=== PATIENT | female | born 2000 | race Caucasian/White ===

== ENCOUNTER → 2019-01-14 15:57 | Outpatient (CLI) | payer OTHER, SELFPAY ==
[2019-01-14 16:32] LABS: Basophils % 0.3 % (0.1-2.0); Eosinophils # 0.1 K/mm3 (0.0-0.4); Eosinophils % 0.6 % (0.1-12.0); Hematocrit 40.3 % (37.0-47.0); Hemoglobin 13.4 g/dL (12.2-16.2); Lymphocytes # 1.9 K/mm3 (0.7-4.5); Lymphocytes % 15.2 % (10-50); Mean Corpuscular HGB Conc 33.2 g/dL (31.8-35.4); Mean Corpuscular Hemoglobin 30.7 pg (27.0-31.2); Mean Corpuscular Volume 92.3 fl (81-99); Mean Platelet Volume 8.2 fl (7.4-10.4); Monocytes # 0.6 K/mm3 (0.1-1.0); Monocytes % 4.9 % (1.7-9.3); Platelet Count 252 K/mm3 (142-424); Red Blood Count 4.36 M/mm3 (4.20-5.40); Red Cell Distribution Width 13.1 % (11.5-17.5); White Blood Count 12.7 K/mm3 (4.5-13.0)
[2019-01-14 16:49] LABS: Amphetamine/Metha Screen,Urine Negative ng/mL (<1000); Barbiturates Screen,Urine Negative ng/mL (<200); Benzodiazepines Screen,Urine Negative ng/mL (<200); Cannabinoid Screen,Urine Negative ng/mL (<50); Cocaine Screen,Urine Negative ng/mL (<300); Methadone Screen,Urine Negative ng/mL (<300); Opiate Screen,Urine Negative ng/mL (<300); Phencyclidine Screen,Urine Negative ng/mL (<25)
[2019-01-14 17:17] LABS: Thyroid Stimulating Hormone 1.38 uIU/ml (0.516-4.13)
[2019-01-16 08:46] LABS: Rubella Antibodies, IgG 0.95 index (Immune >0.99)
[2019-01-16 12:21] LABS: HIV Screen 4th Generation wRfx Non Reactive (Non Reactive); Hepatitis B Surface Antigen Negative (Negative); Rapid Plasma Reagin Ab Titer Non Reactive (NonRea<1:1)
== END ==
PROVIDERS: Visit Provider Obstetrics & Gynecology
DX: Z34.90 Encounter for supervision of normal pregnancy, unspecified, unspecified trimester (principal)
CPT/HCPCS: 36415; 80305; 84443; 85025; 86592; 86703; 86762; 86850; 87340; G0432

== ENCOUNTER → 2019-03-19 10:03 | Outpatient (CLI) | payer OTHER, SELFPAY ==
[2019-03-21 02:14] LABS: AFP Value 52.4 ng/mL (.); DIA Value 263.11 pg/mL (.); DSR (Second Trimester) 1 IN 7183 (.); Gest. Age on Collection Date 16.9 WEEKS (.); Maternal Age At EDD 21.2 yr (.); OSBR Risk 1 IN 2100 (.); Results Report (.); hCG MoM 0.86 (.); uE3 MoM 1.41 (.); uE3 Value 1.36 ng/mL (.)
[2019-03-21 12:34] LABS: Gestat. Age Based On EDD (.)
== END ==
PROVIDERS: Visit Provider Obstetrics & Gynecology
DX: Z34.90 Encounter for supervision of normal pregnancy, unspecified, unspecified trimester (principal)
CPT/HCPCS: 36415; 82106

== ENCOUNTER 2019-04-11 23:25 | Outpatient (CLI) | payer OTHER, SELFPAY ==
[2019-04-11 23:52] VITALS: BP 00/00; PULSE 0; RESP 0; TEMP -17.7; TEMP 0; O2SAT 0
[2019-04-11 23:53] VITALS: BP 143/84; PULSE 113; RESP 18; TEMP 37.5; O2SAT 97; BMI 33.3
[2019-04-12 00:09] LABS: Microscopic, Urine URINE MICROSCOPIC (MICROSCOPIC)
[2019-04-12 00:15] LABS: Appearance,Urine CLEAR (Clear); Bilirubin,Urine Negative (Negative); Blood, Urine TRACE-L (Negative); Color,Urine YELLOW (Yellow); Glucose,Urine (UA) Negative (Negative); Ketones,Urine Negative (Negative); Leukocyte Esterase,Urine 1+ (Negative); Nitrate,Urine Negative (Negative); PH,Urine 7.5 (5.0-8.5); Protein,Urine Negative (Negative); Urobilinogen,Urine 0.2 EU/dl (0.2)
[2019-04-12 00:19] LABS: Amphetamine/Metha Screen,Urine Negative ng/mL (<1000); Barbiturates Screen,Urine Negative ng/mL (<200); Benzodiazepines Screen,Urine Negative ng/mL (<200); Cannabinoid Screen,Urine Negative ng/mL (<50); Cocaine Screen,Urine Negative ng/mL (<300); Methadone Screen,Urine Negative ng/mL (<300); Opiate Screen,Urine Negative ng/mL (<300); Phencyclidine Screen,Urine Negative ng/mL (<25)
[2019-04-12 00:22] LABS: Bacteria,Urine Trace /lpf
== END 2019-04-12 01:00 | disposition home or self-care (01) ==
LOC: OB 04-12 01:17 → OBOUT 04-22 11:17
PROVIDERS: Obstetrics & Gynecology; PCP Emergency Medicine; Visit Provider Emergency Medicine
DX: O26.92 Pregnancy related conditions, unspecified, second trimester (principal); Z3A.20 20 weeks gestation of pregnancy; R10.9 Unspecified abdominal pain
CPT/HCPCS: 80305; 81001; 87086; 96367; 99211; G0378; J0595

== ENCOUNTER 2019-04-13 07:54 | Outpatient (CLI) | payer OTHER, SELFPAY ==
[2019-04-13 08:06] VITALS: BMI 33.4
[2019-04-13 08:22] VITALS: BP 97/55; PULSE 108; RESP 17; TEMP 37.1; O2SAT 99; BMI 33.4
== END 2019-04-13 08:50 | disposition home or self-care (01) ==
LOC: OBOUT 07:58 → OB 08:00
PROVIDERS: PCP Emergency Medicine; Referring Provider Obstetrics & Gynecology; Visit Provider Obstetrics & Gynecology
DX: O26.92 Pregnancy related conditions, unspecified, second trimester (principal); Z3A.20 20 weeks gestation of pregnancy; R10.9 Unspecified abdominal pain
CPT/HCPCS: 59025

== ENCOUNTER 2019-04-13 09:08 | Emergency (ER) | payer OTHER, SELFPAY ==
[2019-04-13 09:25] VITALS: BP 131/75; PULSE 105; RESP 17; TEMP 36.8; O2SAT 98; BMI 33.4
[2019-04-13 09:39] VITALS: BP 121/73; PULSE 113; O2SAT 98
--- NOTE | 2019-04-13 09:40 | [facility].EDABDPAI ---
ED Disposition Clinical Impression: Right lower quadrant abdominal pain, Second trimester , Penicillin allergy Disposition: Xfer Short-Term Hosp Condition on Discharge: Fair Instructions: DI for Acute Abdomen Referrals: Tommie Potts MD [Primary Care Provider] - - Critical Care Critical Care Time: No Attestation: On 04/13/19, the high probability of a clinically significant, sudden or life threatening deterioration of the following system(s) required my full and direct attention, intervention and personal management. The time I documented below is in addition to time spent performing reported procedures but includes the following listed in this critical care notation. Medical Decision Making - Medical Records Medical records reviewed: Yes: I reviewed the patient's medical records. - Roosevelt Inquiry Pt receiving controlled substance: No Roosevelt was queried for this patient: No Vital Signs: 04/13/19 09:25 04/13/19 09:39 Temperature 98.3 F Temperature Source Oral Pulse Rate [Left Radial] 105 H 113 H Respiratory Rate 17 Blood Pressure [Right Arm] 131/75 121/73 Blood Pressure Mean [Right Arm] 93 89 Blood Pressure Source [Right Arm] Automatic Cuff Blood Pressure Position [Right Arm] Sitting 02 Sat by Pulse Oximetry 98 98 Oxygen Delivery Method Room Air - Lab Data Lab Results 04/13/19 09:49: WBC 14.0 H, RBC 4.18 L, Hgb 12.1 L, Hct 37.3, MCV 89.3, MCH 28.9, MCHC 32.4, RDW 13.1, Plt Count 221, MPV 8.2, Neut % (Auto) 83.7 H, Lymph % (Auto) 9.8 L, [place] % (Auto) 4.7, Eos % (Auto) 1.8, Baso % (Auto) 0.2, Neut # (Auto) 11.8 H, Lymph # (Auto) 1.4, [place] # (Auto) 0.7, Eos # (Auto) 0.3, Baso # (Auto) 0.0 04/13/19 09:49: Sodium 139, Potassium 3.6, Chloride 104, Carbon Dioxide 22, Anion Gap 16.6 H, BUN 8, Creatinine 0.53 L, Estimated Creat Clear 215, Estimated GFR 147, Est GFR ( Amer) 178, Glucose 87, Calcium 8.8, Total Bilirubin 0.4, AST 11 L, ALT 20, Alkaline Phosphatase 56, Total Protein 7.1, Albumin 3.1 L, Globulin 4.0 H, Albumin/Globulin Ratio 0.8 L, Amylase 31, Lipase 92 Result diagrams: 04/13/19 09:49 04/13/19 09:49 Medical Decision Narrative: I discussed with the OB on-call physician Dr. Hudson who recommended labs and consulting surgery. I did speak with Dr. Singh the on-call surgeon and discussed her imaging options us versus MRI, dr. Singh presented to the ED agreed with my examination recommend the patient to be referred to a tertiary center. 10 AM, I called and spoke with Tj from [facility] who accepted the patient for Abdominal US and possible MRI if needed. The patient and her mother kept updated and were agreeable for transfer. Abdominal Pain HPI - General Chief Complaint: Abdominal Pain Stated Complaint: adm pain Time Seen by Provider: 04/13/19 09:30 Mode of Arrival: Ambulatory Limitations: No Limitations Description of Symptoms (Recalled from ER Triage Doc. by RN): c/o upper abdomen pain on that has moved to her lower abdomen. Was in OB and checked was told baby was ok. thinks it could be her gallbladder or appendix . States that she wants to be scanned due to her pain and unable to sleep for the pain - History of Present Illness HPI narrative: 18 years old white female weeks 3 days by ultrasound she is not sure about her last menstrual period. She is 1 para 0 A0. She has been experiencing right-sided abdominal pain for the past 2 days. On April 10 she presented to [facility] was taken to the OB floor and observed. On April 10, she describes her pain is sharp rated 7/10 with a temperature of 99 Fahrenheit. This morning she is not feeling any better she came back to the OB floor and was told she is fine and she need to go to the ED for evaluation. Upon arrival to the ED she was taken to room 5, the patient informed me that she continues to have right-sided abdominal pain that is worse with movement and is currently
--- NOTE | 2019-04-13 09:43 | ED_ITS ---
ED Disposition Clinical Impression: Right lower quadrant abdominal pain, Second trimester , Penicillin allergy Disposition: Xfer Short-Term Hosp Condition on Discharge: Fair Instructions: DI for Acute Abdomen Referrals: Tommie Potts MD [Primary Care Provider] - - Critical Care Critical Care Time: No Attestation: On 04/13/19, the high probability of a clinically significant, sudden or life threatening deterioration of the following system(s) required my full and direct attention, intervention and personal management. The time I documented below is in addition to time spent performing reported procedures but includes the following listed in this critical care notation. Medical Decision Making - Medical Records Medical records reviewed: Yes: I reviewed the patient's medical records. - Roosevelt Inquiry Pt receiving controlled substance: No Roosevelt was queried for this patient: No Vital Signs: 04/13/19 09:25 04/13/19 09:39 Temperature 98.3 F Temperature Source Oral Pulse Rate [Left Radial] 105 H 113 H Respiratory Rate 17 Blood Pressure [Right Arm] 131/75 121/73 Blood Pressure Mean [Right Arm] 93 89 Blood Pressure Source [Right Arm] Automatic Cuff Blood Pressure Position [Right Arm] Sitting 02 Sat by Pulse Oximetry 98 98 Oxygen Delivery Method Room Air - Lab Data Lab Results 04/13/19 09:49: WBC 14.0 H, RBC 4.18 L, Hgb 12.1 L, Hct 37.3, MCV 89.3, MCH 28.9, MCHC 32.4, RDW 13.1, Plt Count 221, MPV 8.2, Neut % (Auto) 83.7 H, Lymph % (Auto) 9.8 L, [place] % (Auto) 4.7, Eos % (Auto) 1.8, Baso % (Auto) 0.2, Neut # (Auto) 11.8 H, Lymph # (Auto) 1.4, [place] # (Auto) 0.7, Eos # (Auto) 0.3, Baso # (Auto) 0.0 04/13/19 09:49: Sodium 139, Potassium 3.6, Chloride 104, Carbon Dioxide 22, Anion Gap 16.6 H, BUN 8, Creatinine 0.53 L, Estimated Creat Clear 215, Estimated GFR 147, Est GFR ( Amer) 178, Glucose 87, Calcium 8.8, Total Bilirubin 0.4, AST 11 L, ALT 20, Alkaline Phosphatase 56, Total Protein 7.1, Albumin 3.1 L , Globulin 4.0 H, Albumin/Globulin Ratio 0.8 L, Amylase 31, Lipase 92 Result diagrams: 04/13/19 09:49 04/13/19 09:49 Medical Decision Narrative: I discussed with the OB on-call physician Dr. Hudson who recommended labs and consulting surgery. I did speak with Dr. Singh the on-call surgeon and discussed her imaging options us versus MRI, dr. Singh presented to the ED agreed with my examination recommend the patient to be referred to a tertiary center. 10 AM, I called and spoke with Tj from [facility] who accepted the patient for Abdominal US and possible MRI if needed. The patient and her mother kept updated and were agreeable for transfer. Abdominal Pain HPI - General Chief Complaint: Abdominal Pain Stated Complaint: adm pain Time Seen by Provider: 04/13/19 09:30 Mode of Arrival: Ambulatory Limitations: No Limitations Description of Symptoms (Recalled from ER Triage Doc. by RN): c/o upper abdomen pain on that has moved to her lower abdomen. Was in OB and checked was told baby was ok. thinks it could be her gallbladder or appendix . States that she wants to be scanned due to her pain and unable to sleep for the pain - History of Present Illness HPI narrative: 18 years old white female weeks 3 days by ultrasound she is not sure about her last menstrual per
[2019-04-13 09:57] LABS: Basophils % 0.2 % (0.1-2.0); Eosinophils # 0.3 K/mm3 (0.0-0.4); Eosinophils % 1.8 % (0.1-12.0); Hematocrit 37.3 % (37.0-47.0); Hemoglobin 12.1 g/dL (12.2-16.2); Lymphocytes # 1.4 K/mm3 (0.7-4.5); Lymphocytes % 9.8 % (10-50); Mean Corpuscular HGB Conc 32.4 g/dL (31.8-35.4); Mean Corpuscular Hemoglobin 28.9 pg (27.0-31.2); Mean Corpuscular Volume 89.3 fl (81-99); Mean Platelet Volume 8.2 fl (7.4-10.4); Monocytes # 0.7 K/mm3 (0.1-1.0); Monocytes % 4.7 % (1.7-9.3); Neutrophils # 11.8 K/mm3 (1.8-7.8); Neutrophils % 83.7 % (37.0-80.0); Platelet Count 221 K/mm3 (142-424); Red Blood Count 4.18 M/mm3 (4.20-5.40); Red Cell Distribution Width 13.1 % (11.5-17.5)
--- NOTE | 2019-04-13 09:57 | PC.NURSE ---
DR FABIAN AT BEDSIDE. DISCUSSES WITH PATIENT AND DR NATH REGARDING BEING SENT TO FOR CONTINUITY AND FOLLOW-THROUGH OF CARE.
--- NOTE | 2019-04-13 10:07 | PC.NURSE ---
on phone [facility] @ this time
[2019-04-13 10:08] LABS: Alanine Aminotransferase 20 U/L (12-78); Albumin Level 3.1 gm/dL (3.4-5.0); Albumin/Globulin Ratio 0.8 (1.1-1.8); Alkaline Phosphatase 56 U/L (46-116); Amylase 31 U/L (25-115); Anion Gap 16.6 mEq/L (5-15); Aspartate Amino Transferase 11 U/L (15-37); Bilirubin,Total 0.4 mg/dL (0.2-1.0); Blood Urea Nitrogen 8 mg/dL (7-18); Calcium 8.8 mg/dL (8.5-10.1); Carbon Dioxide 22 mmol/L (21.0-32.0); Chloride 104 mmol/L (98-107); Creatinine Clearance Estimated 215 mL/min (50-200); Creatinine,Serum 0.53 mg/dL (0.55-1.02); Estimated Glomerular Filt Rate 147 ml/min (>60); GFR (African American) 178 ML/MIN (>60); Glucose 87 mg/dL (74-106); Lipase 92 u/L (73-393); Potassium 3.6 mmoL/L (3.5-5.1); Sodium 139 mmol/L (136-145); Total Protein,Serum 7.1 gm/dL (6.4-8.2)
--- NOTE | 2019-04-13 10:25 | PC.NURSE ---
called susie to notified of pt transfer to [place]
[2019-04-13 10:34] VITALS: BP 135/87; PULSE 115; O2SAT 98
[2019-04-13 11:25] VITALS: BP 128/72; PULSE 121; RESP 18; TEMP 37.1; O2SAT 99
== END 2019-04-13 11:30 | disposition short-term general hospital (02) ==
PROVIDERS: Emergency Provider Emergency Medicine; PCP Emergency Medicine
DX: R10.31 Right lower quadrant pain (principal); Z34.92 Encounter for supervision of normal pregnancy, unspecified, second trimester; Z88.0 Allergy status to penicillin
CPT/HCPCS: 80053; 82150; 83690; 85025; 99284

== ENCOUNTER → 2019-05-20 10:20 | Outpatient (CLI) | payer OTHER, SELFPAY ==
[2019-05-20 12:15] LABS: Glucose 1 Hour 113 mg/dL (74-106)
== END ==
PROVIDERS: Visit Provider Obstetrics & Gynecology
DX: Z34.90 Encounter for supervision of normal pregnancy, unspecified, unspecified trimester (principal)
CPT/HCPCS: 36415; 82951

== ENCOUNTER → 2019-07-30 16:24 | Outpatient (CLI) | payer OTHER, SELFPAY | PROVIDERS: Visit Provider Obstetrics & Gynecology | DX: Z34.90 Encounter for supervision of normal pregnancy, unspecified, unspecified trimester (principal) | CPT/HCPCS: 86403 ==

== ENCOUNTER 2019-08-17 22:38 | Inpatient (IN) ==
[2019-08-17 23:13] LABS: Microscopic, Urine URINE MICROSCOPIC (MICROSCOPIC)
[2019-08-17 23:19] LABS: Appearance,Urine CLOUDY (Clear); Bilirubin,Urine Negative (Negative); Blood, Urine TRACE-I (Negative); Color,Urine YELLOW (Yellow); Glucose,Urine (UA) Negative (Negative); Ketones,Urine Negative (Negative); Leukocyte Esterase,Urine Negative (Negative); Protein,Urine 2+ (Negative); Urobilinogen,Urine 0.2 EU/dl (0.2)
[2019-08-17 23:25] LABS: Amorphous Sediment,Urine 2+ /lpf; Mucus,Urine 1+ /lpf; Squamous Epithelial Cell,Urine 20-50 #/hpf (0-5); WBC,Urine Occasional #/hpf (0-3)
[2019-08-17 23:29] LABS: Amphetamine/Metha Screen,Urine Negative ng/mL (<1000); Barbiturates Screen,Urine Negative ng/mL (<200); Benzodiazepines Screen,Urine Negative ng/mL (<200); Cannabinoid Screen,Urine Negative ng/mL (<50); Cocaine Screen,Urine Negative ng/mL (<300); Methadone Screen,Urine Negative ng/mL (<300); Opiate Screen,Urine Negative ng/mL (<300); Phencyclidine Screen,Urine Negative ng/mL (<25)
[2019-08-18 00:12] LABS: Basophils % 0.2 % (0.1-2.0); Eosinophils # 0.1 K/mm3 (0.0-0.4); Eosinophils % 0.9 % (0.1-12.0); Hematocrit 38.6 % (37.0-47.0); Hemoglobin 12.4 g/dL (12.2-16.2); Lymphocytes # 1.7 K/mm3 (0.7-4.5); Lymphocytes % 15.6 % (10-50); Mean Corpuscular HGB Conc 32.1 g/dL (31.8-35.4); Mean Corpuscular Volume 89.7 fl (81-99); Mean Platelet Volume 9.2 fl (7.4-10.4); Monocytes # 0.6 K/mm3 (0.1-1.0); Monocytes % 5.7 % (1.7-9.3); Neutrophils # 8.4 K/mm3 (1.8-7.8); Neutrophils % 77.6 % (37.0-80.0); Platelet Count 218 K/mm3 (142-424); Red Blood Count 4.31 M/mm3 (4.20-5.40); White Blood Count 10.8 K/mm3 (4.8-10.8)
--- NOTE | 2019-08-18 01:46 | Progress Note ---
[facility] Anesthesia Checklist - Structural Data Admitted From: Inpatient Planned Operative Procedure/s: labor epidural Consent for Planned Operative Procedure(s) Verified: Yes - Airway Assessment C-Spine Mobility Assessed: Yes TMJ Mobility Assessed: Yes Dentition: Good Dentition - Neurological Assessment Level of Consciousness: Awake, Alert, Appropriate - Anesthesia Plan Anesthesia Risk discussed: Yes Anesthesia Plan: Verified ASA Class: II Anesthesia Type: Epidural [facility] History I have reviewed the patient's past medical history: Yes Medical History: Denies:: Diabetes Mellitus Type 1, Diabetes Mellitus Type 2 *Have you ever received a pneumonia vaccine?: No *Have you received a flu vaccine this season?: No Anesthesia experience/problems:: none Other Surgeries: Yes: No Previous Surgery. No: Amputation: No Fractures: No - *Social History Smoking Status: Never smoker Alcohol Intake: never Alcohol Intake Frequency:: other Substance Use Type: denies use *Occupational Status:: employed *Travel in the last 8 weeks: None Family Hx:: No significant family history Para: 0
--- NOTE | 2019-08-18 05:39 | Progress Note ---
Internal Medicine - PN: Subj *Date: 08/18/19 *Time: 05:33 (This 19-year-old 1, para 0, Ab0 white female presented at 38-4/7 weeks with spontaneous rupture of membranes at home. On examination at that time her cervix was 3 cm dilated and clear amniotic fluid was extruding. The presenting vertex was at -2 station, and the patient was geo regularly. Her had been uncomplicated except for an appendectomy at approximately 20 weeks of gestation. Since her admission, the patient has undergone an epidural, which is working well. She is comfortable, and has been geo fairly regularly. In the last 30 minutes, the heart rate has increased to 190, but with good variability. Her oral temperature is 100.0. She is allergic to amoxicillin (rash), and will be started on intravenous clindamycin. Urinalysis on admission was clear. Her white count was normal. Her cervix at this time is 8 cm dilated, completely effaced, with the presenting vertex at 0 station. There is no evident meconium. After an IV bolus, heart rate has reverted to 150. An internal monitor has been placed. In anticipation of a vaginal delivery.) Exam Vital signs and Labs for Last 24 Hours: Temp Pulse Resp BP Pulse Ox 98.8 F 116 H 20 160/96 H 96 08/18/19 00:24 08/18/19 00:24 08/18/19 00:24 08/18/19 00:24 08/18/19 00:24 Laboratory Results - last 24 hr 08/17/19 22:45: Membrane Rupture Positive A 08/17/19 22:45: Urine Color Yellow, Urine Appearance Cloudy, Urine pH 7.0, Ur Specific [place] 1.020, Urine Protein 2+, Urine Glucose (UA) Negative, Urine Ketones Negative, Urine Blood Trace-i, Urine Nitrate Negative, Urine Bilirubin Negative, Urine Urobilinogen 0.2, Ur Leukocyte Esterase Negative, Urine RBC 3-5, Urine WBC Occasional, Ur Squamous Epith Cells 20-50, Amorphous Sediment 2+, Urine Mucus 1+ 08/17/19 22:45: Urine Opiates Screen Negative, Urine Methadone Screen Negative, Ur Barbituates Screen Negative, Ur Phencyclidine Scrn Negative, Ur Amphetamines Screen Negative, U Benzodiazepines Scrn Negative, Urine Cocaine Screen Negative, U Marijuana (THC) Screen Negative 08/17/19 23:59: WBC 10.8, RBC 4.31, Hgb 12.4, Hct 38.6, MCV 89.7, MCH 28.8, MCHC 32.1, RDW 15.0, Plt Count 218, MPV 9.2, Neut % (Auto) 77.6, Lymph % (Auto) 15.6, [place] % (Auto) 5.7, Eos % (Auto) 0.9, Baso % (Auto) 0.2, Neut # (Auto) 8.4 H, Lymph # (Auto) 1.7, [place] # (Auto) 0.6, Eos # (Auto) 0.1, Baso # (Auto) 0.0 08/17/19 23:59: Blood Type AB Positive, Antibody Screen Negative I & O for Last 24 hours: Intake & Output 08/15/19 08/16/19 08/17/19 08/18/19 11:59 11:59 11:59 11:59 Weight 190 lb
--- NOTE | 2019-08-18 06:20 | Progress Note ---
Internal Medicine - PN: Subj *Date: 08/18/19 *Time: 06:19 (Since that run of tachycardia earlier, it has not recurred. Petr deleon is having regular contractions and her cervix is now completely effaced, 9 cm, with the presenting vertex at +1 station. No meconium seen. Anticipating a vaginal delivery.) Exam Vital signs and Labs for Last 24 Hours: Temp Pulse Resp BP Pulse Ox 98.8 F 116 H 20 160/96 H 96 08/18/19 00:24 08/18/19 00:24 08/18/19 00:24 08/18/19 00:24 08/18/19 00:24 Laboratory Results - last 24 hr 08/17/19 22:45: Membrane Rupture Positive A 08/17/19 22:45: Urine Color Yellow, Urine Appearance Cloudy, Urine pH 7.0, Ur Specific [place] 1.020, Urine Protein 2+, Urine Glucose (UA) Negative, Urine Ketones Negative, Urine Blood Trace-i, Urine Nitrate Negative, Urine Bilirubin Negative, Urine Urobilinogen 0.2, Ur Leukocyte Esterase Negative, Urine RBC 3-5, Urine WBC Occasional, Ur Squamous Epith Cells 20-50, Amorphous Sediment 2+, Urine Mucus 1+ 08/17/19 22:45: Urine Opiates Screen Negative, Urine Methadone Screen Negative, Ur Barbituates Screen Negative, Ur Phencyclidine Scrn Negative, Ur Amphetamines Screen Negative, U Benzodiazepines Scrn Negative, Urine Cocaine Screen Negative, U Marijuana (THC) Screen Negative 08/17/19 23:59: WBC 10.8, RBC 4.31, Hgb 12.4, Hct 38.6, MCV 89.7, MCH 28.8, MCHC 32.1, RDW 15.0, Plt Count 218, MPV 9.2, Neut % (Auto) 77.6, Lymph % (Auto) 15.6, [place] % (Auto) 5.7, Eos % (Auto) 0.9, Baso % (Auto) 0.2, Neut # (Auto) 8.4 H, Lymph # (Auto) 1.7, [place] # (Auto) 0.6, Eos # (Auto) 0.1, Baso # (Auto) 0.0 08/17/19 23:59: Blood Type AB Positive, Antibody Screen Negative I & O for Last 24 hours: Intake & Output 08/15/19 08/16/19 08/17/19 08/18/19 11:59 11:59 11:59 11:59 Weight 190 lb
--- NOTE | 2019-08-18 06:43 | Progress Note ---
Internal Medicine - PN: Subj *Date: 08/18/19 *Time: 06:42 (Cervix no complete, complete, +2. The patient will begin pushi ng.) Exam Vital signs and Labs for Last 24 Hours: Temp Pulse Resp BP Pulse Ox 98.8 F 116 H 20 160/96 H 96 08/18/19 00:24 08/18/19 00:24 08/18/19 00:24 08/18/19 00:24 08/18/19 00:24 Laboratory Results - last 24 hr 08/17/19 22:45: Membrane Rupture Positive A 08/17/19 22:45: Urine Color Yellow, Urine Appearance Cloudy, Urine pH 7.0, Ur Specific [place] 1.020, Urine Protein 2+, Urine Glucose (UA) Negative, Urine Ketones Negative, Urine Blood Trace-i, Urine Nitrate Negative, Urine Bilirubin Negative, Urine Urobilinogen 0.2, Ur Leukocyte Esterase Negative, Urine RBC 3-5, Urine WBC Occasional, Ur Squamous Epith Cells 20-50, Amorphous Sediment 2+, Urine Mucus 1+ 08/17/19 22:45: Urine Opiates Screen Negative, Urine Methadone Screen Negative, Ur Barbituates Screen Negative, Ur Phencyclidine Scrn Negative, Ur Amphetamines Screen Negative, U Benzodiazepines Scrn Negative, Urine Cocaine Screen Negative, U Marijuana (THC) Screen Negative 08/17/19 23:59: WBC 10.8, RBC 4.31, Hgb 12.4, Hct 38.6, MCV 89.7, MCH 28.8, MCHC 32.1, RDW 15.0, Plt Count 218, MPV 9.2, Neut % (Auto) 77.6, Lymph % (Auto) 15.6, [place] % (Auto) 5.7, Eos % (Auto) 0.9, Baso % (Auto) 0.2, Neut # (Auto) 8.4 H, Lymph # (Auto) 1.7, [place] # (Auto) 0.6, Eos # (Auto) 0.1, Baso # (Auto) 0.0 08/17/19 23:59: Blood Type AB Positive, Antibody Screen Negative I & O for Last 24 hours: Intake & Output 08/15/19 08/16/19 08/17/19 08/18/19 11:59 11:59 11:59 11:59 Weight 190 lb
--- NOTE | 2019-08-18 07:41 | Procedure Note ---
- Delivery Note Delivery Date:: 08/18/19 (Spontaneous rupture membranes at 2030 on 08/17/2019 at home.) Delivery Time:: 07:12 Anesthesia Type: Epidural Was labor medically induced?: No Gestational age (weeks): 38 delivered prior to 39 weeks?: Yes Justification for early elective delivery:: Active Labor Infant Gender: Female at 1 minute: 8 at 5 minutes: 9 Suction Catheter Type: Lazaro AF:: Initial light meconium noted at presentation; none noted from that time forward. LAC or MLE?: MLE Delivery Procedure:: This is a 19-year-old 1, now para 1, Ab0 white female was admitted at approximately 2300 hrs. on 08/17/2019, having spontaneously ruptured membranes at home at 38-4/7 weeks of gestation. Her had been uncomplicated, save for an appendectomy at approximately 20 weeks of gestation. Upon presentation to the labor room, slight meconium tinged fluid was noted, and her bag of water was found to be grossly ruptured. At that time her cervix was 3 cm dilated, completely effaced, with the presenting vertex at 0 station. She labored under labor epidural, which worked well. At 7 to 8 cm of dilatation, tachycardia was noted, albeit with good variability. At that time her oral temperature was 100.0. Her white count was normal. She was started on intravenous clindamycin (she is allergic to penicillin), after which she defervesced and she remained afebrile until after delivery. Her contractions were ineffective at that point and she was augmented with intravenous Pitocin. She went steadily to completion at 0640 on 08/18/2019. The baby was in the occiput posterior position, and she was unable to push effectively. During pushing, tachycardia recurred. She was delivered by outlet forceps over a midline episiotomy. No meconium was noted. The baby's nasal and oropharynx were bulb suctioned, and the baby cried spontaneously on the perineum, as it was delivered. The cord was clamped and cut, 3 vessels were noted to be within the cord, and cord blood was obtained. The cord pH was 7.29. The baby was handed to the arms of the attending ward clerk, Dr. Rojas, who assigned Apgars of 8 at 1 minute and 9 at 5 minutes to this 8 pound 0 ounce, 20.5 inch female , born at 0712. The placenta was delivered manually, intact. Because of the possibility of chorioamnionitis, the placenta will be sent for pathologic examination. There were no lacerations or extensions of the midline episiotomy, which was closed in the usual fashion, in layers, with 2-0 Vicryl. The uterus was inspected and was felt to be clean, and was involuting well, with IV Pitocin running. The rectovaginal septum was intact at the close of the procedure. The sponge and needle count was correct. The estimated blood loss was 350 cc. Immediately , the patient spiked an oral temp of 102.2. She will be continued on antibiotics empirically. Her blood type is AB+. Her rubella titer is not immune and she will be vaccinated prior to discharge. She plans to breast-feed. Placental Delivery Description: Spontaneous
[2019-08-18 13:10] LABS: Basophils % 0.1 % (0.1-2.0); Eosinophils % 0.1 % (0.1-12.0); Hematocrit 33.7 % (37.0-47.0); Lymphocytes # 1.3 K/mm3 (0.7-4.5); Lymphocytes % 7.1 % (10-50); Mean Corpuscular HGB Conc 32.7 g/dL (31.8-35.4); Mean Corpuscular Volume 88.2 fl (81-99); Mean Platelet Volume 9.9 fl (7.4-10.4); Monocytes % 5.5 % (1.7-9.3); Neutrophils # 15.8 K/mm3 (1.8-7.8); Neutrophils % 87.3 % (37.0-80.0); Platelet Count 199 K/mm3 (142-424); Red Blood Count 3.82 M/mm3 (4.20-5.40); White Blood Count 18.1 K/mm3 (4.8-10.8)
[2019-08-18 15:00] LABS: Lymphocytes % 9 % (10-50); Monocytes % 6 % (2-9); Neutrophils % 85 % (42-76); Total Cells Counted 100
[2019-08-18 15:02] LABS: RBC Morphology Normal
[2019-08-19 06:18] LABS: Hemoglobin 10.2 g/dL (12.2-16.2)
--- NOTE | 2019-08-19 07:11 | Progress Note ---
Internal Medicine - PN: Subj *Date: 08/19/19 *Time: 07:08 (This is day #1. The patient is afebrile. (No fevers since delivery.) Lochia normal. The patient is having some struggles with breast-feeding, but will continue to try. Hemoglobin 10.2 g, but clinically stable.) Exam Vital signs and Labs for Last 24 Hours: Temp Pulse Resp BP Pulse Ox 98.4 F 105 H 16 127/78 100 08/19/19 04:47 08/19/19 04:47 08/19/19 04:47 08/19/19 04:47 08/18/19 13:00 Laboratory Results - last 24 hr 08/18/19 07:31: Cord ABG pH 7.29 L 08/18/19 11:45: WBC 18.1 H D, RBC 3.82 L, Hgb 11.0 L D, Hct 33.7 L, MCV 88.2, MCH 28.8, MCHC 32.7, RDW 15.0, Plt Count 199, MPV 9.9, Neut % (Auto) 87.3 H, Lymph % (Auto) 7.1 L, [place] % (Auto) 5.5, Eos % (Auto) 0.1, Baso % (Auto) 0.1, Neut # (Auto) 15.8 H, Lymph # (Auto) 1.3, [place] # (Auto) 1.0, Eos # (Auto) 0.0, Baso # (Auto) 0.0, Total Counted 100, Neutrophils % (Manual) 85 H, Lymphocytes % (Manual) 9 L, Monocytes % (Manual) 6, Platelet Estimate Normal, RBC Morphology Normal 08/19/19 06:09: Hgb 10.2 L, Hct 32.0 L I & O for Last 24 hours: Intake & Output 08/16/19 08/17/19 08/18/19 08/19/19 11:59 11:59 11:59 11:59 Weight 190 lb
--- NOTE | 2019-08-20 07:20 | Progress Note ---
Internal Medicine - PN: Subj *Date: 08/20/19 *Time: 07:20 (This is day #2. The patient is afebrile. Vital signs stable. Abdomen soft. Lochia normal. Episiotomy healing well. Nursing well. Impression: Stable. The patient will be discharged today.) Exam Vital signs and Labs for Last 24 Hours: Temp Pulse Resp BP Pulse Ox 98.4 F 105 H 16 127/78 100 08/19/19 04:47 08/19/19 04:47 08/19/19 04:47 08/19/19 04:47 08/18/19 13:00 I & O for Last 24 hours: Intake & Output 08/17/19 08/18/19 08/19/19 08/20/19 11:59 11:59 11:59 11:59 Intake Total 100 / 100 Balance 100 / 100 Weight 190 lb
--- NOTE | 2019-08-20 07:26 | Discharge Summary ---
General - General Admission date:: 08/17/19 Discharge date: 08/20/19 (This 19-year-old 1, now para 1, Ab0 white female was admitted at 38-4/7 weeks with spontaneous rupture membranes at home and irregular contractions. She was ultimately augmented with intravenous Pitocin, and labored under labor epidural, which worked well. She developed a low-grade fever during her labor and was started on intravenous antibiotics. She subsequently went to completion on 08/18/2019 at 06 40, but pushed ineffectively. The baby was in the occiput posterior position, and was ultimately delivered by outlet forceps over a midline episiotomy. The baby was an 8/9, 8 pound 0 ounce, 20.5 inch female infant, born at 07 12 on 08/18/2019. The baby is breast-feeding, and is done well. The patient spiked a temp immediately , and was continued on antibiotics for 24 hours. She defervesced and has not had a fever since. Her white count is normal. Her hemoglobin on admission was 12.4 g; it is 10.2 g, but she is clinically stable. She is eating and ambulating, and has had a bowel movement. Her lochia is normal. Her episiotomy is healing well. Her uterine fundus is involuting well. Her abdomen is soft. Her blood type is AB+. Her rubella titer is nonimmune, and she will be vaccinated prior to discharge. She is given appropriate instructions as to diet, exercise, and perineal care, and she is to return the office in 2 weeks for follow-up. She is not a smoker.) Hospital Course Rhogam Administration: Not Indicated Objective Vital signs: Temp Pulse Resp BP Pulse Ox 98.4 F 105 H 16 127/78 100 08/19/19 04:47 08/19/19 04:47 08/19/19 04:47 08/19/19 04:47 08/18/19 13:00 Discharge Plan - Patient Discharge Instructions ACTIVITY: Ambulate as tolerated DIET: advance to your usual diet Additional Instructions: FOLLOW-UP WITH DR. BONILLA ON 08/30/2019 @ 10:45 NO HEAVY LIFTING OR STRENUOUS ACTIVITY NOTHING IN VAGINA FOR 6 WEEKS Patient Instructions: Depression, Hemorrhage, [facility] Post Discharge Instructions - Follow up Plan Follow up with: Bruce Bonilla MD [Primary Care Provider] - Disposition: Home, Self-Retirement Medications: Home Medications Medication Instructions Recorded Confirmed Type vitamins no.42-folic acid 1 tab PO DAILY 01/14/19 08/17/19 History 1.4 mg chew tablet,ROXANNE - ,biphase Prescriptions/Medication Reconciliation: Continued vitamins no.42-folic acid 1.4 mg chew tablet,IR - DR,biphase 1 tab PO DAILY - Problem Reconciliation Problems Reviewed?: Yes
[2019-08-20 10:40] VITALS: BP 123/86
== END 2019-08-20 09:45 | disposition home or self-care (01) | DRG 805 ==
LOC: OBOUT 22:38 → OB 22:42
PROVIDERS: ADMIT Obstetrics & Gynecology; ATTEND Obstetrics & Gynecology
CPT/HCPCS: 36415; 59025; 80305; 81001; 82800; 84112; 85007; 85014; 85018; 85025; 86850; 90686; 90707; 94761; C1758; J1956

== ENCOUNTER 2020-09-26 19:01 | Emergency (ER) | payer MEDICAID, SELFPAY ==
[2020-09-26 19:32] VITALS: BP 120/84; PULSE 83; RESP 19; TEMP 36.6; O2SAT 98; BMI 32.1
--- NOTE | 2020-09-26 20:03 | HMH.EDUTC ---
[facility] [place] Disposition Clinical Impression: Exposure to COVID-19 virus, Viral upper respiratory illness Disposition: Home, Self-Care Condition on Discharge: Good Instructions: Preventing the Spread of Coronavirus Discharge Instructions, Sore Throat Additional Instructions: *Monitor Temp, Over the counter Motrin or Tylenol as directed/as needed Tylenol every 4 hours and Motrin every 6 hours (as long as your family doctor has told you that you can take it) for fever or pain. and straight to ER if unable to lower temp less than 101.0 after medication given *Warm salt water gargles may help to soothe the throat *Throat Lozenges *Warm fluids like tea with honey may help to soothe the throat *Sleep elevated *Humidifier/Vaporizer Follow up IMMEDIATELY for new or worsening symptoms or no Noticeable improvement over the next 48-72 hours. 911 for difficulty breathing or swallowing You was tested for today for COVID19 your test result should be back in the next 24-48 hours, you may call to the [facility] later today or tomorrow to see if your test results are back and the result [phone] [facility] hours are 9am-9pm You was given a handout with instructions for Self Quarantine and Self isolation for while you wait on test results and what to do if they are positive If you are positive the Health Dept will be contacting you also Referrals: Tommie Potts MD [Primary Care Provider] - As needed Forms: Work/School Release Time of Disposition: 20:05 Medical Decision Making - Roosevelt Inquiry Pt receiving controlled substance: No Roosevelt was queried for this patient: No Vital Signs: 09/26/20 19:32 Temperature 97.8 F Temperature Source Oral Pulse Rate [Radial] 83 Respiratory Rate 19 Blood Pressure [Right Arm] 120/84 Blood Pressure Mean [Right Arm] 96 Blood Pressure Source [Right Arm] Automatic Cuff Blood Pressure Position [Right Arm] Sitting 02 Sat by Pulse Oximetry 98 Oxygen Delivery Method Room Air Orders (Tests/Meds): ORDERS Category Date Time Status Covid-19 Nasal PCR ([facility]) Routine Lab 09/26/20 19:13 Ordered [facility] HPI - General Stated complaint: Covid test Time Seen by Provider: 09/26/20 20:03 Mode of Arrival: Ambulatory Source of Information: Patient Limitations: No Limitations Description of Symptoms (Recalled from Triage Doc. 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 States that she has been having a scratchy throat and some clear drainage from her nose and was worried that she may have it and wanted to get tested for COVID - Related Data Home Medications Medication Instructions Recorded Confirmed vitamins no.42-folic acid 1 tab PO DAILY 01/14/19 10/07/19 1.4 mg chew tablet,IR - DR,biphase etonogestrel 68 mg subdermal SUBDERMAL each 10/07/19 10/07/19 implant Previous Rx's Medication Instructions Recorded predniSONE [Prednisone 20mg 20 mg PO BID #10 tab 11/19/19 Tab] Allergies Allergy/AdvReac Type Severity Reaction Status Date / Time amoxicillin [AMOXICILLIN] Allergy Mild Verified 10/07/19 10:40 - Worker's Comp Is this a Worker's Comp case?: No [facility] History - Hepatitis A Screen Drug use history?: No High risk sexual behaviors?: No History of sexually transmitted infection?: No Currently employed?: No Childcare worker?: No Do you have indoor plumbing?: Yes Do you have electricity?: Yes Attestation statement:: This patient has been screened for Hepatitis A risk factors. I have reviewed the patient's past medical history: Yes Medical History: Denies:: Diabetes Mellitus Type 1, Diabetes Mellitus Type 2 Other Surgeries: Yes: No
[2020-09-26 20:40] VITALS: BP 120/84; PULSE 83; RESP 19; TEMP 36.6; O2SAT 98
== END 2020-09-26 20:41 | disposition home or self-care (01) ==
PROVIDERS: Emergency Provider Nurse Practitioner; PCP Emergency Medicine
DX: Z20.828 Contact with and (suspected) exposure to other viral communicable diseases (principal); J06.9 Acute upper respiratory infection, unspecified
CPT/HCPCS: 99201; U0003

== ENCOUNTER → 2021-11-12 10:45 | Outpatient (CLI) | payer MEDICAID, SELFPAY | PROVIDERS: Visit Provider Nurse Practitioner | DX: U07.1 COVID-19 (principal) | CPT/HCPCS: C9803; U0003; U0005 ==

== ENCOUNTER 2023-10-12 17:17 | Emergency (ER) | payer SELFPAY ==
[2023-10-12 17:19] VITALS: BP 148/94; PULSE 84; RESP 16; TEMP 36.6; O2SAT 100; BMI 32.9
--- NOTE | 2023-10-12 18:00 | HMH.EDGENADL ---
Discharge Plan Disposition Patient Disposition: Home, Self-Care Prescriptions Prescriptions: No Action comb no.42-folic acid 1.4 mg tablet,chew,IR - DR,biphase 1 tab PO DAILY Nexplanon 68 mg implant SUBDERMAL prednisone 20 MG tablet 20 mg PO BID Qty: 10 0RF Referrals Follow up/Referrals: Maria Fernanda Correa PA [Primary Care Provider] - See instructions Activity Restrictions/Add. Instructions Additional Instructions/Restrictions: Call your family doctor to establish care for this visit to the emergency department and schedule follow-up within 48 hours to ensure improvement. If you have any worsening of your condition or any other concerning signs or symptoms, return to the emergency department or your primary care doctor for further evaluation. Clinical Impressions Clinical Impression: Vaginal bleeding during Discharge ED Provider: Nikhil Pierce General Adult HPI General Chief complaint: Vaginal Bleeding Stated complaint: bleeding and cramping Time Seen by Provider: 10/12/23 17:21 Mode of Arrival: Ambulatory Source of Information: Patient Limitations: No Limitations Description of Symptoms (Recalled from ER Triage Doc. by RN): Presents to ED with c/o vaginal bleeding, abd cramping, and nausea. Patient states bleeding started about 1300 and reports there was scant amount of blood in pad since then. . Patient blieves she is 6-7 weeks but has not had her first OB appointment; denies meds [employer]. History of Present Illness HPI narrative: 23-year-old female history of appendectomy who is currently 6 or 7 weeks by last menstrual period August 28 presenting with lower abdominal cramping and vaginal bleeding. Patient states that bleeding started around 1 PM today, approximately 5 hours prior to arrival. Associated with cramping over the last couple of days, no cramping associated with the bleeding. Started off when she urinated, wiped, noticed a lot of blood, but has had spotting since that time. No dysuria, hematuria, fevers or chills, nausea or vomiting. First OB appointment is in October. Related Data Home Medications Medication Instructions Recorded Confirmed vitamins no.42-folic acid 1 tab PO DAILY Supplement 01/14/19 10/07/19 1.4 mg chew tablet,IR - DR,biphase etonogestrel 68 mg subdermal subdermal 10/07/19 10/07/19 implant (Nexplanon) Previous Rx's Medication Instructions Recorded prednisone 20 mg tablet 20 mg PO BID #10 tabs 11/19/19 Allergies Allergy/AdvReac Type Severity Reaction Status Date / Time amoxicillin [AMOXICILLIN] Allergy Mild Verified 10/07/19 10:40 [facility] Disclaimer: The information contained in this section may have been updated after the patient was seen, as this information can be updated by other users. Social History Smoking Status: Never smoker alcohol intake: never substance use type: denies use current occupational status: employed Travel in the last 8 weeks: None ROS Obtained: Yes All systems reviewed & no additional complaints except as documented Physical Exam General General appearance: alert and in no apparent distress Head Head exam: atraumatic and normocephalic Eye Eye exam: Present normal appearance, PERRL and EOMI ENT ENT exam: Present mucous membranes moist Neck Neck exam: Present normal inspection, full ROM and trachea midline Respiratory Respiratory exam: Absent respiratory distress, wheezes, stridor, accessory muscle use or prolonged expiratory phase Cardiovascular Cardiovascular exam: Present regular rate and normal rhythm Abdominal Exam Abdominal exam: Present soft; Absent distention, tenderness, guarding, rebound, rigidity or normal bowel sounds Extremities Exam Extremities exam: Absent edema Neurological Exam Neurological exam: Present alert, oriented X3, CN II-XII intact and normal gait; Absent motor sensory deficit Skin Skin exam: Present wa
[2023-10-12 18:04] LABS: Basophils # 0.1 K/mm3 (0-0.2); Basophils % 0.5 % (0.1-2.0); Eosinophils # 0.2 K/mm3 (0.0-0.4); Eosinophils % 1.7 % (0.1-12.0); Hematocrit 40.2 % (37.0-47.0); Hemoglobin 13.7 g/dL (12.2-16.2); Lymphocytes % 16.9 % (10-50); Mean Corpuscular HGB Conc 34.2 g/dL (31.8-35.4); Mean Corpuscular Hemoglobin 31.4 pg (27.0-31.2); Mean Corpuscular Volume 91.7 fl (81-99); Mean Platelet Volume 8.8 fl (7.4-10.4); Monocytes # 0.5 K/mm3 (0.1-1.0); Monocytes % 4.1 % (1.7-9.3); Neutrophils # 9.1 K/mm3 (1.8-7.8); Neutrophils % 76.9 % (37.0-80.0); Platelet Count 255 K/mm3 (142-424); Red Blood Count 4.38 M/mm3 (4.20-5.40); Red Cell Distribution Width 14.2 % (11.5-17.5); White Blood Count 11.9 K/mm3 (4.8-10.8)
[2023-10-12 18:11] LABS: Alanine Aminotransferase 35 U/L (12-78); Alkaline Phosphatase 64 U/L (38-126); Aspartate Amino Transferase 43 U/L (14-36); Bilirubin,Total 0.3 mg/dl (0.2-1.3); Blood Urea Nitrogen 10 mg/dl (7-17); Carbon Dioxide 25 mmol/L (22.0-30.0); Chloride 103 mmol/L (98-107); Creatinine Clearance Estimated 222 mL/min (50-200); Estimated Glomerular Filt Rate 150 ml/min (>60); GFR (African American) 182 ML/MIN (>60); Glucose 87 mg/dl (74-100)
[2023-10-12 18:15] VITALS: BP 136/90; PULSE 86; O2SAT 99
[2023-10-12 18:21] LABS: Albumin Level 4.6 g/dl (3.5-5.0); Albumin/Globulin Ratio 1.4 (1.1-1.8); Globulin 3.4 g/dL (1.3-3.2); Sodium 133 mmol/L (136-145)
[2023-10-12 18:34] LABS: Microscopic, Urine URINE MICROSCOPIC (MICROSCOPIC)
[2023-10-12 18:39] LABS: Appearance,Urine CLEAR (Clear); Blood, Urine 3+ (Negative); Color,Urine YELLOW (Yellow); Glucose,Urine (UA) Negative (Negative); Ketones,Urine TRACE (Negative); Leukocyte Esterase,Urine Negative (Negative); Nitrate,Urine Negative (Negative); Protein,Urine TRACE (Negative); Specific Gravity, Urine >= 1.030 (1.005-1.030); Urobilinogen,Urine 0.2 EU/dl (0.2)
[2023-10-12 18:42] LABS: Bilirubin,Urine 1+ (Negative)
[2023-10-12 19:03] LABS: HCG,Quantitative 53400 mIU/ml (0-5.42)
--- NOTE | 2023-10-12 19:20 | PC.NURSE ---
Report handed off to Kurtis GREEN
[2023-10-12 19:25] LABS: RBC,Urine Occasional #/hpf (0-3); Squamous Epithelial Cell,Urine Occasional #/hpf (0-5)
--- NOTE | 2023-10-12 19:59 | US_ITS ---
PROCEDURE INFORMATION: Exam: US , Transvaginal Exam date and time: 10/12/2023 8:25 PM Age: 23 years old Clinical indication: Lmp or gestational age (in weeks): 6 weeks 3 days; Other: Spotting earlier in the day; ; Additional info: Vaginal bleeding LABS AND CLINICAL REPORTS: Last menstrual period start date: 08/26/2023 Gestational age (Established): 6 w 5 d Estimated due date (Established): 06/01/2024 TECHNIQUE: Imaging protocol: Real-time transvaginal obstetrical ultrasound of the maternal pelvis with image documentation. Transvaginal imaging was used for better evaluation of the fetus, adnexa, and/or cervix. COMPARISON: No relevant prior studies available. FINDINGS: Gestation: Intrauterine gestational sac identified. Yolk sac measures 3.5 mm. Small perigestational hemorrhage at the inferior and leftward margins of the gestational sac measuring 2 x 1 x 0.5 cm. heart rate: 122 bpm BIOMETRY: Gestational age (AUA): 6 w 3 d Estimated due date (AUA): 06/03/2024 [place] length (CRL): 5.95 mm. EGA (CRL) is 6 w 3 d MATERNAL: Right ovary/adnexa: Right ovary measures 4.15 cm x 2.27 cm x 2.85 cm. Right ovarian volume is 14.06 mL. 2.2 cm corpus luteum cyst noted. Color flow documented. Venous waveforms documented. Left ovary/adnexa: Left ovary measures 1.78 cm x 1.12 cm x 1.45 cm. Left ovarian volume is 1.51 mL. Color flow documented. Low resistance spectral arterial waveforms documented. Intraperitoneal space: No intraperitoneal free fluid. IMPRESSION: 1. Intrauterine gestational sac identified containing a single fetus and yolk sac. heart motions are confirmed. 2. Small perigestational hemorrhage. 3. Normal ovaries with corpus luteum cyst in the right ovary. Both ovaries demonstrate appropriate blood flow. 4. No free fluid.
--- NOTE | 2023-10-12 19:59 | PC.NURSE ---
notified mechanical engineering technician of ultrasound order
--- NOTE | 2023-10-12 20:28 | PC.NURSE ---
pt transported to ultrasound
--- NOTE | 2023-10-12 20:56 | PC.NURSE ---
pt returned from ultrasound
[2023-10-12 21:02] VITALS: BP 127/81; PULSE 81; RESP 16; TEMP 36.6; O2SAT 99
== END 2023-10-12 21:04 | disposition home or self-care (01) ==
PROVIDERS: Emergency Provider Emergency Medicine; PCP Physician Assistant
DX: O26.851 Spotting complicating pregnancy, first trimester (principal); O26.891 Other specified pregnancy related conditions, first trimester; R10.9 Unspecified abdominal pain; R11.0 Nausea; Z3A.01 Less than 8 weeks gestation of pregnancy
CPT/HCPCS: 76817; 80053; 81001; 84702; 85025; 99285

== ENCOUNTER 2023-11-29 12:39 | Emergency (ER) | payer BC, SELFPAY ==
[2023-11-29 13:30] VITALS: BP 126/93; PULSE 103; RESP 18; TEMP 37; O2SAT 98; BMI 36.7
--- NOTE | 2023-11-29 13:37 | EXP.UTC ---
Discharge Plan Disposition Patient Disposition: Home, Self-Care Condition: Good Prescriptions Prescriptions: New cephalexin 250 mg/5 mL suspension for reconstitution 500 mg PO QID 7 Days Qty: 280 0RF No Action comb no.42-folic acid 1.4 mg tablet,chew,IR - DR,biphase 1 tab PO DAILY Nexplanon 68 mg implant SUBDERMAL prednisone 20 MG tablet 20 mg PO BID Qty: 10 0RF Referrals Follow up/Referrals: Perry Bo DO [Primary Care Provider] - See instructions Activity Restrictions/Add. Instructions Additional Instructions/Restrictions: Drink plenty of fluids. Take tylenol for pain or fever. Stop the amoxicillin and start the cephalexin (keflex). Follow up with your regular doctor. Follow up with your research and evaluation analyst physician. GO TO THE ER FOR ANY WORSENING SYMPTOMS Clinical Impressions Clinical Impression: UTI (urinary tract infection), , Drug reaction Stand Alone Forms Stand Alone Forms: Work/School Release Instructions Patient Instructions: DI for Urinary Tract Infection (UTI), DI for Adverse Drug Reaction -- Allergic, Cephalexin Discharge ED Provider: Dustin Conn [facility] General Stated complaint: 13 wks anteptm, rash on face, uti Time Seen by Provider: 11/29/23 13:37 History of Present Illness Provider Complaint: She states that she was diagnosed with a UTI by her research and evaluation analyst physician 2 days ago. She is 14 weeks . She states that since she started the amoxicillin she has developed an itchy rash on her face and her back. She has taken keflex before and she would like to have the antibiotic switched to that. Related Data Home Medications Medication Instructions Recorded Confirmed vitamins no.42-folic acid 1 tab PO DAILY Supplement 01/14/19 10/07/19 1.4 mg chew tablet,IR - DR,biphase etonogestrel 68 mg subdermal subdermal 10/07/19 10/07/19 implant (Nexplanon) Previous Rx's Medication Instructions Recorded prednisone 20 mg tablet 20 mg PO BID #10 tabs 11/19/19 cephalexin 250 mg/5 mL oral 500 mg (10 mL) PO QID 7 days #280 11/29/23 suspension mL Allergies Allergy/AdvReac Type Severity Reaction Status Date / Time amoxicillin [AMOXICILLIN] Allergy Mild Verified 10/07/19 10:40 [facility] Disclaimer: The information contained in this section may have been updated after the patient was seen, as this information can be updated by other users. Social History Smoking Status: Never smoker alcohol intake: never substance use type: denies use current occupational status: employed Travel in the last 8 weeks: None ROS Obtained: Yes All systems reviewed & no additional complaints except as documented Constitutional Constitutional: Reports system reviewed and no additional complaints, except as documented, Denies chills and Denies fever(s) Eyes Eyes: Denies eye discharge ENT Ears, Nose, Mouth, and Throat: Denies dysphagia, Denies sore throat and Denies throat swelling Cardiovascular Cardiovascular: Denies chest pain and Denies dyspnea Respiratory Respiratory: Denies chest congestion, Denies cough and Denies dyspnea Gastrointestinal Gastrointestingal: Denies abdominal pain, constipation, diarrhea, dysphagia, nausea or vomiting Genitourinary Female Genitourinary: Reports as per HPI, Reports dysuria, Reports urinary frequency, Denies urinary incontinence, Reports urinary hesitancy and Reports urinary urgency Musculoskeletal Musculoskeletal: Denies arthralgias and Reports back pain Integumentary/Breasts Skin/Breast: Denies rash Neurologic Neurologic: Denies paresthesias Allergic/Immunologic Allergic/Immunologic: Denies throat swelling Physical Exam General General appearance: alert and in no apparent distress Head Head exam: atraumatic, normocephalic and normal inspection Eye Eye exam: Present normal appearance, PERRL and EOMI ENT ENT exam: Present normal exam, normal oropharynx, mucous membranes moist, TM's normal bilaterally and normal external ear exam Neck Neck exam: Present normal inspection, full ROM and trachea midline; Absent meningismus or lymphadenopathy Chest Chest inspection: Present normal inspection and symmetric chest wall rise; Absent tenderness Respiratory Respiratory exam: Present normal lung sounds bilaterally; Absent respiratory distress Cardiovascular Cardiovascular exam: Present regular rate and normal rhythm; Absent JVD Abdominal Exam Abdominal exam: Present soft and normal bowel sounds; Absent distention, tenderness or guarding Extremities Exam Extremities exam: Present normal inspection, full ROM and normal capillary refill; Absent calf tenderness Back Exam Back exam: Present normal inspection; Absent tenderness Neurological Exam Neurological exam: Present alert and oriented X3 Psychiatric Psychiatric exam: Present normal affect and normal mood Skin Skin exam: Present warm, dry, intact and normal color Lymphatic Lymphatic Findings: no adenopathy Medical Decision Making Medical Records Medical records reviewed: No I reviewed the patient's medical records. [place] Inquiry Pt receiving controlled substance: No
[2023-11-29 14:17] VITALS: BP 126/93; PULSE 103; RESP 18; TEMP 37; O2SAT 98
== END 2023-11-29 14:17 | disposition home or self-care (01) ==
PROVIDERS: Emergency Provider Nurse Practitioner Family; PCP Internal Medicine
DX: O23.42 Unspecified infection of urinary tract in pregnancy, second trimester (principal); T36.0X5A Adverse effect of penicillins, initial encounter; L50.0 Allergic urticaria; N39.0 Urinary tract infection, site not specified; Z3A.14 14 weeks gestation of pregnancy
CPT/HCPCS: 99204; 99212; 99214; G0463